=== PATIENT | male | born 1950 | race Caucasian/White ===

== ENCOUNTER 2017-10-01 23:46 | Emergency (ER) | payer OTHER ==
[~2017-10-01] VITALS: Ht 182.9 cm; Wt 104.9 kg
[~2017-10-01 23:46] MED LIST: FLOMAX0.4 MG PO; PERCOCET 5/31 TABLET PO; ZOFRAN4 MG PO
[2017-10-02 01:24] LABS: HEMATOCRIT 46.4 % (38.0-50.0); HEMOGLOBIN 16.4 G/DL (12.5-16.6); MCH 29.5 PG (29.0-34.0); MCHC 35.3 G/DL (30.0-36.0); MCV 83.5 FL (86-99); PLATELET COUNT 257 K/uL (156-360); RBC DIS.WIDTH-SD 36.2 % (39-53); RED BLOOD COUNT 5.56 M/uL (4.00-5.50); WHITE BLOOD COUNT 15.1 K/uL (4.1-10.2)
[2017-10-02 01:36] LABS: CHLORIDE 104 mEq/L (99-109); POTASSIUM 4.3 mEq/L (3.7-5.4); SODIUM 136 mEq/L (136-147)
[2017-10-02 01:38] LABS: GLUCOSE 152 mg/dL (70-99)
[2017-10-02 01:42] LABS: CREATININE 1.3 mg/dL (0.6-1.3); GFR ESTIMATE (CALCULATED) 59 mL/min/ (58.99-99999)
[2017-10-02 01:43] LABS: UREA NITROGEN (BUN) 19 mg/dL (9-23)
[2017-10-02 02:08] LABS: APPEARANCE SL.HAZY ((CLEAR)); BILIRUBIN NEGATIVE; BLOOD LARGE; COLOR YELLOW ((YELLOW)); GLUCOSE (STRIP) 50; KETONES 20; LEUKOCYTES NEGATIVE; NITRITE NEGATIVE; PROTEIN (STRIP) 30; SPECIFIC GRAVITY 1.026 (1.000-1.030); UROBILINOGEN 0.2 MG/DL (0.2-1.0)
[2017-10-02 02:10] LABS: BACTERIA NONE SEEN /HPF; EPITHELIAL CELLS RARE /HPF; MUCUS TRACE /LPF; RED BLOOD CELLS TNTC /HPF (0-5); UCUL ADDED? YES; WHITE BLOOD CELLS 0-5 /HPF (0-5)
[2017-10-02] MEDS ORDERED: MOTRIN800 MG PO (03:37)
[2017-10-02] MEDS ORDERED: NORCO 7.5/321 TABLET PO (03:37)
[2017-10-02] MEDS ORDERED: FLOMAX0.4 MG PO (03:37)
[2017-10-02] MEDS ORDERED: ZOFRAN ODT4 MG PO (03:37)
[2017-10-02 04:22] VITALS: BP 153/73
== END 2017-10-02 04:24 | disposition home or self-care (01) ==
LOC: EME 23:46
PROC: 0T9B70Z Drainage of Bladder with Drainage Device, Via Natural or Artificial Opening (ICD-10-PCS; principal; 2017-10-02)
DX: N36.8 Other specified disorders of urethra (principal); G89.18 Other acute postprocedural pain; E86.0 Dehydration; R11.2 Nausea with vomiting, unspecified; Z87.442 Personal history of urinary calculi
CPT/HCPCS: 80048; 81003; 85027; 87086; 99281; 99285; J1885; J2405; J3010; J7030